=== PATIENT | female | born 1965 | race Hispanic/Latino ===

== ENCOUNTER 2016-11-10 18:46 | Observation (INO) | payer OTHER ==
[~2016-11-10] VITALS: Ht 157.5 cm; Wt 87.6 kg
[~2016-11-10 18:46] MED LIST: IBUP800T28 PO; OXYC1TAB24 PO; PARO40TA47 PO
[2016-11-10 18:53] VITALS: BP 150/62; PULSE 53; RESP 16; O2SAT 98
[2016-11-10 19:03] VITALS: BP 136/64; PULSE 51; RESP 19; O2SAT 99
--- NOTE | 2016-11-10 19:09 | ED.REPORT ---
HPI-Neurologic Deficit Date of Service Nov 10, 2016 ED Provider: Dr. Arambula Pt is a 51 year old female with a hx of depression and anxiety presenting to the ED complaining of tongue numbness onset at 0930 this morning after drinking coffee. Then when she drank water around 1430 or 1500 it spilled down her face, and her tongue and lips felt weird and like they did not line up correctly. She also has a right sided facial droop and numbness. She states that she did not speak to people very much today so she cannot be sure if her symptoms all began at 0930 today or if they were gradually worsening throughout the day. Denies any visual or speech changes, hearing changes, difficulty swallowing, balance problems, weakness, chest pain, or nausea. Nursing Notes Stated Complaint: FACIAL PARALYSIS Chief Complaint: Neuro Symptoms/ Deficits Nursing Notes Reviewed: Yes Allergies: Coded Allergies: No Known Allergies (Unverified , 10/07/15) Scheduled Calcium Carbonate (Calcium Carbonate) 600 Mg Tablet 1,200 MG PO QAM Cholecalciferol (Vitamin D3) (Vitamin D3) 1,000 Unit Tab.chew 1,000 UNIT PO QAM Phoenix-3/Dha/Epa/Fish Oil (Fish Oil 1,000 mg Softgel) 1 Each Capsule 1 EACH PO QAM Paroxetine (Paxil) 40 Mg Tablet 40 MG PO HS General Time Seen by Provider: 19:11 Chief Complaint Other (Tongue numbness) Hx Obtained From: Patient Arrived By: Walk-in Sudden in Onset?: Yes Onset Occurred: 9 - 12 hours ago Symptom Duration: Since onset Severity: Current: No pain currently Severity: Maximum: No pain Recent Healthcare: No recent doctor visit, No recent hospitalization Similar Sx Previous: No Past Medical History Past Medical History Depression and anxiety Past Surgical History denies Smoking History Unknown if Ever Smoker Ambulatory Status Independent Review of Systems Denies hearing changes or difficulty swallowing Cardiovascular: Denies: Chest pain GI: Denies: Nausea Neurologic: Reports: Numbness, Denies: Problem walking, Slurred speech, Unable to speak, Vision change, Weakness Complete sys rev & neg: except as marked. Physical Exam Initial Vital Signs Vital Signs (First) Date Time Temp Pulse Resp B/P Pulse Ox O2 Delivery O2 Flow Rate FiO2 11/10/16 18:53 37.0 53 16 150/62 98 Room Air Initial VS: Reviewed, Vital signs abnormal ENT: Mucous membranes moist, Conjunctiva normal, No scleral icterus Neck: Supple, Non-tender, Full range of motion Abdomen / GI: Soft, Non-tender, No guarding, No rebound, No distention Extremities: Vascular intact, Neuro intact, No swelling, No tenderness Skin: Warm, Dry, No cyanosis Psychiatric: Mood/affect normal, Behavior normal, Normal thought content General/Constitutional: Awake, Alert, No acute distress Head / Eyes: Atraumatic, Normocephalic, PERRL, EOMI Respiratory / Chest: Atraumatic, Breath sounds NL, Breath sounds = bilat, No respiratory distress Cardiovascular: Heart rate NL, Regular rhythm, Heart sounds NL Neurologic: Oriented X3, Speech NL, No motor deficits, No sensory deficits, CN II - XII intact, Reflexes equal bilat, Cerebellar NL Thorough neurological exam normal. Right sided facial droop. Neck: Atraumatic, Supple No carotid bruit. Interpretation & Diagnostics Lab Results Interpretation Result Diagram: 11/10/16191111/10/161911 Test 11/10/16 19:12 11/10/16 20:48 White Blood Count 10.4th/mm3 (3.8-10.1) Red Blood Count 4.51mil/mm3 (3.90-5.20) Hemoglobin 12.3g/dL (12.0-15.6) Hematocrit 37.3% (35.0-46.0) Mean Corpuscular Volume 82.7fL (81-100) Mean Corpuscular Hemoglobin 27.3pg (27.0-35.0) Mean Corpuscular Hemoglobin Concent 33.0% (32.0-37.0) Red Cell Distribution Width 12.9% (12.3-15.4) Platelet Count 263bil/L (150-400) Neutrophils (%) (Auto) 52.6% (40-74) Lymphocytes (%) (Auto) 35.6% (14-46) Monocytes (%) (Auto) 6.6% (4-12) Eosinophils (%) (Auto) 4.7% (0-5) Basophils (%) (Auto) 0.3% (0-3) Hold Purple Top Tube Received (Received) Prothrombin Time 10.1sec (8.1-12.5) Prothromb Time International Ratio 0.95ratio Activated Partial Thromboplast Time 28.5sec (22.8-33.0) Hold Blue Top Tube Received (Received) Sodium Level 140mEq/L (134-144) Potassium Level 3.9mEq/L (3.5-5.2) Chloride Level 102mEq/L (97-108) Carbon Dioxide Level 26mmol/L (18-29) Blood Urea Nitrogen 14mg/dL (6-24) Creatinine 0.50mg/dL (0.57-1.00) Estimat Glomerular Filtration Rate 185mL/min (>59) Glucose Level 153mg/dL (60-99) Calcium Level 9.0mg/dL (8.5-10.1) Total Bilirubin 0.6mg/dL (0.0-1.2) Aspartate Amino Transf (AST/SGOT) 17U/L (0-50) Alanine Aminotransferase (ALT/SGPT) 21U/L (0-32) Alkaline Phosphatase 102U/L (25-150) Troponin T 0.010ug/L (0.0-0.011) Total Protein 7.0g/dL (6.4-8.4) Albumin 4.3g/dL (3.4-5.0) Triglycerides Level 423mg/dL (0-149) Cholesterol Level 211mg/dL (100-199) LDL Cholesterol, Calculated 96.400mg/dL (0-99) VLDL Cholesterol 84.600mg/dL HDL Cholesterol 30mg/dL (>39) Cholesterol/HDL Ratio 7.03 (0.0-4.4) Hold Webster Top Tube Received (Received) Urine Color Yellow (YELLOW) Urine Appearance Hazy (CLEAR,HAZY) Urine pH 6.0 (5.0-8.0) Urine Specific Alpha 1.025 (1.003-1.035) Urine Protein Negativemg/dL (NEG,TRACE) Urine Glucose (UA) Negativemg/dL (NEGATIVE) Urine Ketones Negativemg/dL (NEGATIVE) Urine Occult Blood Negative (NEGATIVE) Urine Nitrite Negative (NEGATIVE) Urine Bilirubin Negative (NEGATIVE) Urine Urobilinogen Normalmg/dL (NORMAL) Urine Leukocyte Esterase Trace (NEGATIVE) Urine RBC 0-2/hpf (0-2) Urine WBC 0-5/hpf (0-5) Urine Epithelial Cells Moderate/hpf (NONE-MOD) Urine Crystals None seen (NONE SEEN) Urine Bacteria Moderate/hpf (NONE-FEW) Urine Hyaline Casts None/lpf (NONE) Urine Granular Casts None seen (NONE SEEN) Urine Waxy Casts None seen (NONE SEEN) Urine Red Blood Cell Casts None seen (NONE SEEN) Urine White Blood Cell Casts None seen (NONE SEEN) Urine Mucus None seen (None Seen) Urine Trichomonas None seen (NONE SEEN) Urine Yeast None (NONE SEEN) Urinalysis Comment None Urine Culture Reflexed Indicated ECG Interpretation ECG Interpretation: Sinus bradycardia at 55. Normal axis and intervals. Q waves in [address] No acute [address] or T wave changes. Time: 20:08 Interpreted by: ED physician CT Head Interpretation IMPRESSION: No acute intracranial abnormality Dictated by: Nazario Pickett M.D. on 11/10/2016 at 20:10 Study: Head CT no contrast Interpretation / Wet Read by: Interpret - Radiologist Re-Eval/Medical Decision Med Decision/Clinical Course The patient has right sided facial droop and no other findings. She will be admitted for further evaluation for CVA. Re-Evaluation/Progress : Time of Eval: 20:59 Patient Status: Condition improved Re-Evaluation/Progress Note: Discussed plan for admission. Pt understands and agrees with plan. Pt is unable to close her right eye. She is able to wrinkle her forehead. Informed of CT results. Consultation : Referral / Consult Name: Mindy Gonzáles DO Consulted With: Hospitalist Call Returned at: 21:29 Service Center Specialist: Will see patient, Agrees with plan, Accepts admit Counseled Regarding: Diagnosis, Lab results, Need for admission Discharge & Departure Impression: Primary Impression: CVA (cerebral vascular accident) CVA mechanism: unspecified Qualified Code: I63.9 - Cerebral infarction, unspecified Disposition: ADMITTED TO HOSPITAL Discharge Condition All VS Reviewed: Yes Condition: Improved Referrals: Madison Grimm (PCP) Andrew Attestation Portions of this note were transcribed by Tiffany Landaverde. I, Dr. Arambula personally performed the history, physical exam and medical decision-making; I reviewed and confirmed the accuracy of the information in the transcribed note. Signed by : Andrew Cardenas, 11/10/2016. copies to: Madison Grimm Jena M MD Nov 10, 2016 19:09 TIFFANY LANDAVERDE Nov 10, 2016 19:19
[2016-11-10 20:06] LABS: MONOCYTES % (AUTO) 6.6 % (4-12); Mean Corpuscular Hemoglobin 27.3 pg (27.0-35.0); Mean Corpuscular Volume 82.7 fL (81-100); NEUTROPHILS % (AUTO) 52.6 % (40-74); Platelet Count 263 bil/L (150-400)
[2016-11-10 20:07] LABS: BASOPHILS % (AUTO) 0.3 % (0-3); EOSINOPHILS % (AUTO) 4.7 % (0-5)
[2016-11-10 20:11] LABS: INR 0.95 ratio
--- NOTE | 2016-11-10 20:13 | DRSVH ---
PROCEDURE: CT BRAIN WITHOUT CONTRAST ([id number]) INDICATIONS: Stroke TECHNIQUE: Noncontrast 4.5 mm thick angled axial sections acquired from the foramen magnum to the vertex, with c oronal reformats. COMPARISON: None. FINDINGS: Image quality: Excellent. CSF spaces: Basal cisterns are patent. No extra-axial fluid collections. Ventricles are normal in size and shape. Brain: No midline shift. No intracranial masses or hemorrhage. Velazquez-white matter interface is norm al. Skull and face: Calvarium and visualized facial bones are intact, without suspicious lesions. Sinuses: Visualized sinuses and mastoids are clear. IMPRESSION: No acute intracranial abnormality Dictated by: Nazario Pickett M.D. on 11/10/2016 at 20:10 Approved by: Nazario Pickett M.D. on 11/10/2016 at 20:11
[2016-11-10 20:17] VITALS: BP 131/69; PULSE 55; RESP 20; O2SAT 97
[2016-11-10 20:17] LABS: TROPONIN T 0.01 ug/L (0.0-0.011)
[2016-11-10 21:13] LABS: APPEARANCE,URINE HAZY (CLEAR,HAZY); COLOR,URINE YELLOW (YELLOW); OCCULT BLOOD,URINE NEGATIVE (NEGATIVE); UROBILINOGEN,URINE NORMAL (NORMAL)
[2016-11-10] MEDS ORDERED: CHOL10008 PO (21:32)
[2016-11-10] MEDS ORDERED: NAPR220C16 PO (21:32)
[2016-11-10] MEDS ORDERED: OMEG-38 PO (21:32)
[2016-11-10] MEDS ORDERED: CALC600T87 PO (21:32)
[2016-11-10] MEDS ORDERED: 0.9% Sodium Chloride 1,000 ML IV SCH (22:12)
[2016-11-10 22:15] VITALS: BP 131/69; PULSE 55; RESP 20; O2SAT 97
[2016-11-10] MEDS ORDERED: Alum-Mag Hydrox-Simeth 30 mL Suspension PO PRN ×2 (22:15→22:30)
[2016-11-10] MEDS ORDERED: Ondansetron 2 mg/mL 2 mL Inj IVPUSH PRN ×2 (22:15→22:30)
[2016-11-10] MEDS ORDERED: Labetalol 5 mg/mL 20 mL Inj IVPUSH PRN (22:30)
[2016-11-10] MEDS ORDERED: hydrALAZINE 20 mg/mL Inj IVPUSH PRN (22:30)
[2016-11-10] MEDS ORDERED: Polyethylene Glycol (PEG) 17 Gm Powder PO PRN (22:30)
--- NOTE | 2016-11-10 22:50 | NUR ---
Admission Note Pt admitted to [facility] from ER on stretcher at 2226, alert and orientedx4, denies any pain/SOB/N/V/fever/chills. BP136/78 HR 54, RR18, SPO2 98% on RA, T37. Lung sounds clear, Tele applied SB48-53 per ekg monitor tech, S1 S2 distant,no murmur. Abdomen soft, nontender, BT active. Obese. No edema at all extremities. Neuro check: right face numbness resolved, denies weakness,tingling, denies dizziness,vertigo when ambulated to bed. Right facial droop, mouth deviated to the left when talking, weakness at right eyelid. Tongue midline, no speech abnormalities noted, full strength at all extremities 5/5, light sensation intact. Stroke provided to pt, pt educated s/s of stroke and when to call, pt verbalizes understanding. Pt informed NPO due to failed swallow screen per LEGAL EDITOR Misti Harris report. Night resident at bedside, plan informed to pt by MD. Pt oriented to call light, care ongoing.
[2016-11-10 23:02] VITALS: BP 136/78; PULSE 54; RESP 18; O2SAT 98
--- NOTE | 2016-11-10 23:16 | PCM.HPMED ---
Subjective Date of Service Nov 10, 2016 Primary Provider: Admitting Physician: Mindy Gonzáles DO Primary Care Physician: Ana Gonsalves MD Attending Physician: Mindy Gonzáles DO Chief Complaint: Facial weakness History of Present Illness: Patient is a 51 year old Female with past medical history of anxiety and depression who presents after onset of facial and mouth weakness that started at 09:30 this morning. Patient reports a "funny feeling" in her right mouth with tongue numbness while she was drinking her morning coffee. At around 14:00, she states this progress to difficulty drinking out of her water bottle and unable to hold water in her mouth. Associated symptoms include R facial numbness. Denies any unilateral extremity weakness/numbness, fever/ chills, WILLIS, visual changes, hearing difficulty, N/V/D, CP, SOB, or urinary symptoms. She denies any recent sick contacts or recent travel. In ED, CT scan performed showing no acute changes, she was given 1L NS and ASA. Review of Systems: ROS reviewed and otherwise negative unless noted above. Allergies Coded Allergies: No Known Allergies (Unverified , 10/07/15) Home Medications Scheduled Calcium Carbonate (Calcium Carbonate) 600 Mg Tablet 600 MG PO QAM Cholecalciferol (Vitamin D3) (Vitamin D3) 1,000 Unit Tab.chew 1,000 UNIT PO QAM Mikado-3/Dha/Epa/Fish Oil (Fish Oil 1,000 mg Softgel) 1 Each Capsule 1 EACH PO QAM Paroxetine (Paxil) 40 Mg Tablet 40 MG PO HS Scheduled PRN Naproxen Sodium (Naproxen Sodium) 220 Mg Capsule 220 MG PO DAILY PRN PRN For Headache PMH Anxiety Depression Surgical History Family History Family history of HTN, DM in mother Social History Hx Alcohol Use: No Hx Substance Use: No Smoking Status: Never Smoker Living Arrangement: with Family Exam Vital Signs Vital Sign - Last Date Time Temp Pulse Resp B/P Pulse Ox O2 Delivery O2 Flow Rate FiO2 11/10/16 23:02 37.0 54 18 136/78 98 Room Air Exam Constitutional: Awake, alert and oriented x4, no acute distress Head: Normocephalic and atraumatic Eyes: pupils equal round and reactive to light, EOMI, no scleral icterus Mouth: moist mucous membranes, uvula midline, no oropharynx erythema Neck: FROM, no stiffness, no lymphadenopathy Heart: regular rate and ryhthm, no murmurs, rubs, or gallops. no peripheral edema Lungs: clear to auscultation, no wheeze, rales, or rhonchi ABD: soft, nontender, bowel sounds present throughout Musculoskeletal: moves all four extremities appropriately, able to transition from wheelchair to bed unassisted. 5/5 strength in bilateral specialist employee labor relations and 5/5 strength in bilateral UE and LE. Neuro: CN II-XII intact, but with right facial weakness with smiling, unable to fully smile on right side, unable close right eye tight against resistance; sensation intact bilaterally, able to protrude and retract tongue and move tongue towards both sides. Sensation intact throughout physical exam. Skin: warm, dry, no rash Psych: appropriate mood and affect. Lab and Diagnostics Labs Item Value Date Time Triglycerides Level 423 mg/dL H 11/10/161911 Cholesterol Level 211 mg/dL H 11/10/161911 LDL Cholesterol, Calculated 96.400 mg/dL 11/10/161911 VLDL Cholesterol 84.600 mg/dL 11/10/161911 HDL Cholesterol 30 mg/dL 11/10/161911 Cholesterol/HDL Ratio 7.03 H 11/10/161911 Item Value Date Time Red Blood Count 4.51 mil/mm3 11/10/161911 Mean Corpuscular Volume 82.7 fL 11/10/161911 Mean Corpuscular Hemoglobin 27.3 pg 11/10/161911 Mean Corpuscular Hemoglobin Concent 33.0 % 11/10/161911 Red Cell Distribution Width 12.9 % 11/10/161911 Neutrophils (%) (Auto) 52.6 % 11/10/161911 Lymphocytes (%) (Auto) 35.6 % 11/10/161911 Monocytes (%) (Auto) 6.6 % 11/10/161911 Eosinophils (%) (Auto) 4.7 % 11/10/161911 Basophils (%) (Auto) 0.3 % 11/10/161911 Estimat Glomerular Filtration Rate 185 mL/min 11/10/161911 Calcium Level 9.0 mg/dL 11/10/161911 Total Bilirubin 0.6 mg/dL 11/10/161911 Aspartate Amino Transf (AST/SGOT) 17 U/L 11/10/161911 Alanine Aminotransferase (ALT/SGPT) 21 U/L 11/10/161911 Alkaline Phosphatase 102 U/L 11/10/161911 Troponin T 0.010 ug/L 11/10/161911 Total Protein 7.0 g/dL 11/10/161911 Albumin 4.3 g/dL 11/10/161911 Prothrombin Time 10.1 sec 11/10/161911 Prothromb Time International Ratio 0.95 ratio 11/10/161911 Activated Partial Thromboplast Time 28.5 sec 11/10/161911 Result Diagram: 11/10/16191111/10/161911 Microbiology Urine Culture Pending 12-lead ECG Sinus Rhythm HR 55 Assessment & Plan Patient is a 51 year old Female with past medical history of anxiety and depression who presents after onset of facial and mouth weakness that started at 09:30 this morning. - Acute Right Sided Facial Weakness, POA, Active, Stable - Patient presents with right sided facial weakness, lower > upper, with no acute changes on CT. Etiologies include ischemic CVA vs Benitez's Palsy - Consult Neurology in AM - MR W/ contrast of head and neck in AM - US Carotids in AM - Echo of heart in AM - Labetalol PRN HTN with permissive HTN; however patient has been in the systolic 130s consistently - Hgb A1c, TSH - AM CBC, CMP - Start Atorvastatin 10mg HS daily - Consider ordering anti-phospholipid or hypercoagulable studies in a patient with no past medical history for risk factors and if current studies come back negative. - Speech evaluation in AM - PT/OT evaluation in AM Depression and anxiety, chronic -continue paroxetine following speech swallow eval Patient is FULL CODE Patient presenting with active stroke like symptoms, admitted under the observation status with anticipated length of stay less than two midnights. Pain Evaluation: Adequate Pain Control GI Prophylaxis: H2 kaity VTE Prophylaxis Indicated: Contraindicated VTE Mechanical Devices: Intermittant Pneumatic CD Resuscitation Status: CPR: Attempt Resuscitation Attending Statement The patient was seen and examined together with house staff on 11/10/2016 and I have added additional information to the note above. Lionel Morfin DO Nov 10, 2016 23:16 Mindy Gonzáles DO Nov 11, 2016 04:31
[2016-11-11] VITALS (8 sets, daily range): BP systolic 124–133; BP diastolic 66–86; PULSE 47–62; RESP 18; O2SAT 92–97
[2016-11-11 05:48] LABS: BASOPHILS % (AUTO) 0.4 % (0-3); EOSINOPHILS % (AUTO) 5.6 % (0-5); MONOCYTES % (AUTO) 7.3 % (4-12); Mean Corpuscular Hemoglobin 27.1 pg (27.0-35.0); NEUTROPHILS % (AUTO) 47.4 % (40-74); Platelet Count 235 bil/L (150-400)
--- NOTE | 2016-11-11 06:57 | NUR ---
Flu Vaccine Pt did not have flu vaccine this flu season, she is eligible for flu vaccine, but admission assessment does not have the option of age available. Flu vaccine order does not show at [facility], pharmacy contacted, need MD to write an order of flu vaccine to be given to pt. Ranlo communication sheet left for day hospitalist and condition also communicated with RN next shift.
[2016-11-11] MEDS ORDERED: predniSONE 20 mg Tablet PO SCH (08:00)
--- NOTE | 2016-11-11 08:55 | NUR ---
Transferring to MRI Patient transferred to MRI at 0856.
[2016-11-11] MEDS: Famotidine Inj 20 MG in IV Premix 1 EACH IV SCH ×2 (10:10→20:14)
--- NOTE | 2016-11-11 10:35 | DRSVH ---
PROCEDURE: MRI STROKE PROTOCOL ([id number]) Pre- and post-contrast brain MRI, non-contrast brain MR angiogram, pre- and postcontrast neck MR [place] ogram INDICATIONS: facial nurve palsy TECHNIQUE: Brain: Noncontrast axial T1 spin echo, axial T2 fast spin echo, sagittal and axial FLAIR, coronal T2 fast spin echo, axial gradient echo, axial diffusion and ADC through the brain. After the administr ation of contrast, axial 3D VIBE of the cranial vasculature and brain. Brain MRA: Non-contrast 3-D time of flight MR angiogram, with multiple dqlveit-dpxpzotse-dmnunattjr (MIP) reformats performed. Neck MRA: Axial and sagittal TruFISP through the neck. Coronal dynamic MR angiogram during administ ration of contrast in the arterial and venous phases, with 3-dimenstional eectyri-nnnxtexbs-sfdcjkntf n (MIP) reformats constructed from subtraction images. COMPARISON: [facility], CT, CT BRAIN WO CON, 11/10/2016, 20:00. FINDINGS: Image quality: There are motion artifacts. BRAIN: CSF spaces: Ventricles are normal in size and shape. Basal cisterns are patent. No extra-axial flu id collections. Brain: No intracranial bleeds or mass effects. Velazquez-white matter interface is normal. Diffusion we ighted images show no acute ischemic insults. Brainstem appears normal. Normal intravascular flow v oids are present. No abnormal intracranial enhancement. Skull and face: Calvarial marrow signal is normal. Orbits appear normal. Sinuses: Sinuses and mastoids are clear. BRAIN MR ANGIOGRAM: Anterior circulation: Intracranial internal carotid arteries are normal in size and enhancement. Th e A1 segment of the left anterior cerebral artery is small, which is likely congenital. There is a 5 mm aneurysm in the area of the anterior communicating artery. The flow within the paired anterior cer ebral arteries is normal and symmetric. The flow within the middle cerebral arteries is normal and s ymmetric. The anterior communicating artery is seen. No stenoses, occlusions, or aneurysms. Posterior circulation: The visualized portions of the vertebral arteries demonstrate normal caliber, and join to form a normal appearing basilar artery. The flow within the posterior cerebral arteries is normal and symmetric. No stenoses, occlusions, or aneurysms. NECK MR ANGIOGRAM: Carotids: Great vessels demonstrate a conventional anatomy as they arise from the aortic arch. The origins of the common carotid arteries appear patent. The calibers and courses of both common caroti d arteries are normal. The bifurcation regions appear normal bilaterally. The internal carotid tino harmeet demonstrate normal course and caliber. Posterior circulation: The origins of the vertebral arteries appear patent. More superior portions of both vertebral arteries demonstrate normal course and caliber, and join to form a normal appearing basilar artery. Miscellaneous: Subclavian arteries appear patent. Pre-contrast images through the neck show no soft tissue abnormalities. IMPRESSION: BRAIN MRI: No acute intracranial abnormality. BRAIN MR ANGIOGRAM: 1. 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 2. No high-grade stenosis or occlusion in anterior or posterior circulations. NECK MR ANGIOGRAM: 1. Normal cervical carotid arteries bilaterally. 2. Normal cervical vertebral arteries bilaterally. The estimate of stenosis included in the report of the imaging study was calculated using the NASCET method Dictated by: Deirdre Pineda M.D. on 11/11/2016 at 10:11 Approved by: Deirdre Pineda M.D. on 11/11/2016 at 10:33
--- NOTE | 2016-11-11 10:56 | NUR ---
Evaluation completed. Please go to "Notes" then click on "Assessments and Notes" (bottom left corner of screen). Then select appropriate discipline tab on top of screen.
--- NOTE | 2016-11-11 11:21 | PCM.PNMED ---
Subjective Date of Service Nov 11, 2016 Subjective Continues to have right-sided facial droop. No numbness now. Exam Vital Signs Vital Sign - Last Date Time Temp Pulse Resp B/P Pulse Ox O2 Delivery O2 Flow Rate FiO2 11/11/16 05:54 55 11/11/16 05:39 36.6 18 127/80 97 Room Air Intake and Output 11/10/16 11/10/16 11/11/16 Cumulative From/Thru 15:00 23:00 07:00 11/10/16 18:53 - 11/11/16 06:55 Intake Total 700 ml 700 ml Output Total 650 ml 650 ml Balance 50 ml 50 ml Intake Oral 0 ml 0 ml IV Total 700 ml 700 ml Output Urine Total 650 ml 650 ml # Voids 1 1 Exam Constitutional: Awake, alert and oriented x4, no acute distress Head: Normocephalic and atraumatic Eyes: pupils equal round and reactive to light, EOMI, no scleral icterus Mouth: moist mucous membranes, uvula midline, no oropharynx erythema Neck: FROM, no stiffness, no lymphadenopathy Heart: regular rate and ryhthm, no murmurs, rubs, or gallops. no peripheral edema Lungs: clear to auscultation, no wheeze, rales, or rhonchi ABD: soft, nontender, bowel sounds present throughout Musculoskeletal: moves all four extremities appropriately, able to transition from wheelchair to bed unassisted. 5/5 strength in bilateral materials recycler and 5/5 strength in bilateral UE and LE. Neuro: CN II-XII intact, but with right facial weakness with smiling, unable to fully smile on right side, unable close right eye tight against resistance; sensation intact bilaterally, able to protrude and retract tongue and move tongue towards both sides. Sensation intact throughout physical exam. Skin: warm, dry, no rash Psych: appropriate mood and affect. IVs and Medications Medications Reviewed: Medications were reviewed in detail Lab and Diagnostics Result Diagram: 11/11/1651411/11/16514 X-Rays, CTs and MRIs PROCEDURE: MRI STROKE PROTOCOL ([id number]) Pre- and post-contrast brain MRI, non-contrast brain MR angiogram, pre- and postcontrast neck MR angiogram INDICATIONS: facial nurve palsy IMPRESSION: BRAIN MRI: No acute intracranial abnormality. BRAIN MR ANGIOGRAM: 1. 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 2. No high-grade stenosis or occlusion in anterior or posterior circulations. NECK MR ANGIOGRAM: 1. Normal cervical carotid arteries bilaterally. 2. Normal cervical vertebral arteries bilaterally. The estimate of stenosis included in the report of the imaging study was calculated using the NASCET method Dictated by: Deirdre Pineda M.D. on 11/11/2016 at 10:11 12-lead ECG Sinus Rhythm HR 55 Assessment & Plan Patient is a 51 year old Female with past medical history of anxiety and depression who presents after onset of facial and mouth weakness that started at 09:30 this morning. 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 ischemic CVA unlikely. Will start prednisone 60 mg by mouth daily. Plan to continue 60mg for 5 days and taper 10mg/d over additional 5 days. - MR stroke protocol negative - Echo pending - Hgb A1c, TSH -Telemetry - Started Atorvastatin 10mg HS daily. Will discontinue tomorrow - Speech evaluation , PT/OT evaluation #Depression and anxiety, chronic -continue paroxetine following speech swallow eval Patient is FULL CODE inpatient Possible discharge tomorrow GI Prophylaxis: H2 kaity VTE Mechanical Devices: Intermittant Pneumatic CD Resuscitation Status: CPR: Attempt Resuscitation Kareem Acuña MD Nov 11, 2016 11:21
[2016-11-11] MEDS ORDERED: .Epic Conversion Completed XX PRN (12:35)
--- NOTE | 2016-11-11 13:19 | NUR ---
Evaluation completed/no further PT/up ad roberto carlos Please go to "Notes" then click on "Assessments and Notes" (bottom left corner of screen). Then select appropriate discipline tab on top of screen. no further PT indicated; pt OK to be up ad roberto carlos
--- NOTE | 2016-11-11 15:49 | DRSVH ---
[facility] [address] [place] [address] Echocardiogram Report Name: JUAN ALVES PStudy Date: 11/11/2016 Height: 62 in Hospital Exam Location: [facility] Weight: 193 lb Gender: Female BSA: 1.9 m2 : 1965 Age: 51 yrs BP: 127/80 m mHg Reason For Study: CVA Ordering Physician: Douglas HospitalistPerformed By: Jamila Brand Referring Physician: Dr. Ana Gonsalves Interpretation Summary Injection of contrast with valsalva documented an possibbility of an interatrial shunt or pulmonary AV fistula. Consider [id number] to r/o interatrial shunt. The left ventricle is normal in size. The ejection fraction is estimated to be 55-60%. There is no LV thrombus. The right ventricle is normal size. The right ventricular systolic function is normal. There is mild mitral regurgitation. The mitral regurgitant jet is eccentrically directed. Procedure: A two-dimensional transthoracic echocardiogram with color flow and Doppler was performed. The study quality was technically adequate. There is no prior echocardiogram noted for this patient. A saline contrast injection was performed to assess for cardiac shunting. The patient was in normal sinus rhythm during the exam. The heart rate ranged between 47-66 bpm during the study. Left Ventricle: The left ventricle is normal in size. Proximal septal thickening is noted. There is no echo evidence for significant left ventricular outflow tract obstruction. There is no thrombus. The ejection fraction is estimated to be 55-60%. There are no focal wall motion abnormalities. Assessment of diastolic parameters indicates normal left ventricular diastolic function and normal filling pressures. Right Ventricle: The right ventricle is normal size. The right ventricular systolic function is normal. Atria: The left atrium is mildly dilated. Right atrial size is normal. Injection of contrast with valsalva documented an interatrial shunt. Mitral Valve: There is mild mitral annular calcification. There is mild mitral regurgitation. The mitral regurgitant jet is eccentrically directed. Aortic Valve: The aortic valve is trileaflet. The aortic valve opens well. There is no aortic valve stenosis. There is trace aortic regurgitation. Tricuspid Valve: The tricuspid valve is normal. Right ventricular systolic pressure is estimated to be 24 mmHg plus the clinically estimated CVP which cannot be estimated on this exam. There is trace tricuspid regurgitation. Pulmonic Valve: The pulmonic valve is not well visualized. There is trace pulmonic regurgitation. Great Vessels: The aortic root is normal size. The ascending aorta is normal in size. The aortic arch is normal in size. The inferior vena cava was not well visualized. The IVC has a measurement of 23 mm. Pericardium/ Pleura There is no pericardial effusion. MMode/2D Measurements & Calculations LVIDd: 4.6 cm LVIDs: 2.9 cm LA A2 area: 22.0 cm FS: 37.1 % LA A4 area: 19.1 cm IVSd: 0.80 cm LA length (vol): 5.0 cm LVPWd: 0.93 cm LA vol: 71.1 ml LA vol index: 37.8 ml/m IVC diam: 2.3 cm RA long axis: 4.4 cm LVOT diam: 1.8 cm RA area: 15.2 cm Ao root diam: 2.9 cm RA vol: 44.6 ml asc Aorta Diam: 2.7 cm RA : 23.7 ml/m2 Ao Arch Diam (Prox Trans): 3.0 cm LV diaz. diameter/BSA (cm/m^2): 2.5 LV sys. diameter/BSA (cm/m^2): 1.5 RVD1 (basal): 3.6 cm RVD2 (mid): 2.9 cm Doppler Measurements & Calculations Ao V2 max: 196.5 cm/sec MV E max jose alfredo: 93.7 cm/sec Ao max P.5 mmHg MV A max jose alfredo: 85.9 cm/sec Ao mean P.9 mmHg MV P1/2t: 59.6 msec LVOT Max Jose Alfredo: 126.1 cm/sec NOAH(I,D): 1.7 cm sev ratio: 0.66 MV E/A: 1.1 TR max jose alfredo: 243.7 cm/sec Med Peak E' Jose Alfredo: 8.4 cm/sec TR max P.8 mmHg E/E' med: 11.1 PA V2 max: 95.4 cm/sec Lat Peak E' Jose Alfredo: 10.2 cm/sec PA mean P.1 mmHg E/E' lat: 9.2 PA Accel Time: 0.15 sec E/e' average: 10.2 MV dec time: 0.20 sec MV P1/2t max jose alfredo: 94.4 cm/sec MVA(P1/2t): 3.7 cm2 Ao V2 mean: 119.3 cm/sec LV V1 max P.4 mmHg Ao V2 VTI: 46.8 cm LV V1 VTI: 30.7 cm NOAH(V,D): 1.7 cm2 PA V2 mean: 68.7 cm/sec NOAH indexed to BSA (cm^2/m^2): 0.91 Reading Physician:DAPHNIE
[2016-11-12] MEDS ORDERED: Influenza (Adult) Vaccine 0.5 mL Syringe IM ONE (08:30)
== END 2016-11-12 13:32 | disposition home or self-care (01) ==
LOC: SED 18:46 → INTOOBSV 21:28 → MPC 21:28 → OBSVTOIN 21:28 → MPC 22:30
PROVIDERS: ADMIT Internal Medicine; ATTEND Internal Medicine
DX: R69 Illness, unspecified (principal)